=== PATIENT | female | born 1980 | race Two or more races ===

== ENCOUNTER 2017-03-26 07:49 | Emergency (ER) | payer MEDICAID ==
[~2017-03-26] VITALS: Ht 170.2 cm; Wt 84.8 kg
[2017-03-26 07:57] VITALS: BP 140/89
== END 2017-03-26 08:21 | disposition home or self-care (01) ==
LOC: ED 07:49
DX: S02.5XXA Fracture of tooth (traumatic), initial encounter for closed fracture (principal); Z88.0 Allergy status to penicillin; X58.XXXA Exposure to other specified factors, initial encounter; Y93.89 Activity, other specified; Y99.8 Other external cause status; Y92.89 Other specified places as the place of occurrence of the external cause

== ENCOUNTER 2017-05-22 17:09 | Emergency (ER) | payer OTHER ==
[2017-05-22 17:14] VITALS: BP 132/91
== END 2017-05-22 18:05 | disposition home or self-care (01) ==
LOC: ED 17:09
DX: K04.7 Periapical abscess without sinus (principal); R03.0 Elevated blood-pressure reading, without diagnosis of hypertension; Z88.0 Allergy status to penicillin; Z98.51 Tubal ligation status

== ENCOUNTER 2017-05-27 08:22 | Emergency (ER) | payer OTHER ==
[2017-05-27 10:29] VITALS: BP 125/74
== END 2017-05-27 10:29 | disposition home or self-care (01) ==
LOC: ED 08:22
DX: J40 Bronchitis, not specified as acute or chronic (principal); Z88.0 Allergy status to penicillin

== ENCOUNTER 2017-06-16 13:20 | Emergency (ER) | payer SELFPAY ==
[~2017-06-16] VITALS: Ht 12.7 cm; Wt 84.8 kg
[2017-06-16 13:37] VITALS: Ht 12.7 cm; Wt 84.8 kg
[2017-06-16 14:51] VITALS: BP 130/88
== END 2017-06-16 14:51 | disposition home or self-care (01) ==
LOC: ED 13:20
DX: K04.7 Periapical abscess without sinus (principal); Z98.51 Tubal ligation status; Z88.0 Allergy status to penicillin

== ENCOUNTER 2017-06-24 14:26 | Emergency (ER) | payer OTHER ==
[~2017-06-24] VITALS: Ht 167.6 cm; Wt 85.3 kg
[2017-06-24 14:45] VITALS: BP 135/102; Ht 167.6 cm; Wt 85.3 kg
== END 2017-06-24 16:30 | disposition home or self-care (01) ==
LOC: ED 14:26
DX: L53.9 Erythematous condition, unspecified (principal); Z88.0 Allergy status to penicillin

== ENCOUNTER 2017-07-27 15:32 | Emergency (ER) | payer OTHER ==
[~2017-07-27] VITALS: Ht 167.6 cm; Wt 86.6 kg
[2017-07-27 15:49] VITALS: BP 138/90; Ht 167.6 cm; Wt 86.6 kg
== END 2017-07-27 16:45 | disposition home or self-care (01) ==
LOC: ED 15:32
DX: K02.9 Dental caries, unspecified (principal); Z88.0 Allergy status to penicillin

== ENCOUNTER 2017-10-15 13:23 | Emergency (ER) | payer OTHER ==
[~2017-10-15] VITALS: Ht 167.6 cm; Wt 87.1 kg
[2017-10-15 13:44] VITALS: Ht 167.6 cm; Wt 87.1 kg
[2017-10-15 14:14] LABS: BASOPHIL % 0.4 % (0-2); PLATELET COUNT 259 x10^3mcL (130-400); RED CELL DISTRIBUTION WIDTH 13.6 % (11.5-14.5)
[2017-10-15 14:25] LABS: ALBUMIN 3.5 g/dL (3.4-5.0); ALKALINE PHOSPHATASE 93 U/L (46-116); ALT/SGPT 25 U/L (14-59); AST/SGOT 15 U/L (15-37); BILIRUBIN TOTAL 0.6 mg/dL (0.20-1.00); CALCIUM 8.7 mg/dL (8.5-10.1); CARBON DIOXIDE 28.1 mmol/L (21-32); CHLORIDE SERUM 106 mmol/L (98-107); CREATININE SERUM 1.1 mg/dL (0.6-1.0); GFR1 > 60 mL/min; GLUCOSE SERUM 95 mg/dL (74-106); SODIUM SERUM 140 mmol/L (136-145); TOTAL PROTEIN, SERUM 7.3 g/dL (6.4-8.2)
[2017-10-15 15:15] VITALS: BP 135/97
[2017-10-15 15:17] LABS: AMPHETAMINE QUAL UR NONE DETECTED (NEG <=1000)
== END 2017-10-15 15:15 | disposition home or self-care (01) ==
LOC: ED 13:23
PROVIDERS: Emergency Medicine
DX: R07.9 Chest pain, unspecified (principal); R03.0 Elevated blood-pressure reading, without diagnosis of hypertension; Z88.0 Allergy status to penicillin
CPT/HCPCS: 36415; 83880; J1885; Q0092

== ENCOUNTER 2017-12-03 18:23 | Emergency (ER) | payer OTHER ==
[~2017-12-03] VITALS: Ht 167.6 cm; Wt 83.0 kg
[2017-12-03 18:48] VITALS: Ht 167.6 cm; Wt 83.0 kg
[2017-12-03 19:52] VITALS: BP 132/71
== END 2017-12-03 20:38 | disposition home or self-care (01) ==
LOC: ED 18:23
DX: N39.0 Urinary tract infection, site not specified (principal); Z88.0 Allergy status to penicillin; F32.9 Major depressive disorder, single episode, unspecified
CPT/HCPCS: J1885; Q0092

== ENCOUNTER 2018-01-08 09:28 | Emergency (ER) | payer OTHER ==
[~2018-01-08] VITALS: Ht 162.6 cm; Wt 83.5 kg
[2018-01-08 09:36] VITALS: BP 144/84; Ht 162.6 cm; Wt 83.5 kg
== END 2018-01-08 11:32 | disposition home or self-care (01) ==
LOC: ED 09:28
DX: S06.0X0A Concussion without loss of consciousness, initial encounter (principal); S01.01XA Laceration without foreign body of scalp, initial encounter; Z88.0 Allergy status to penicillin; Y00.XXXA Assault by blunt object, initial encounter; Y93.89 Activity, other specified; Y92.89 Other specified places as the place of occurrence of the external cause; Y99.8 Other external cause status
CPT/HCPCS: J2001

== ENCOUNTER 2018-01-11 11:41 | Emergency (ER) | payer OTHER ==
[~2018-01-11] VITALS: Ht 170.2 cm; Wt 84.8 kg
[2018-01-11 11:53] VITALS: BP 97/65; Ht 170.2 cm; Wt 84.8 kg
== END 2018-01-11 14:45 | disposition home or self-care (01) ==
LOC: ED 11:41
DX: S01.01XD Laceration without foreign body of scalp, subsequent encounter (principal); W22.8XXD Striking against or struck by other objects, subsequent encounter

== ENCOUNTER 2018-01-17 13:56 | Emergency (ER) | payer OTHER ==
[~2018-01-17] VITALS: Ht 157.5 cm; Wt 85.7 kg
[2018-01-17 14:32] VITALS: BP 127/89
== END 2018-01-17 14:32 | disposition home or self-care (01) ==
LOC: ED 13:56
DX: S01.01XD Laceration without foreign body of scalp, subsequent encounter (principal); X58.XXXD Exposure to other specified factors, subsequent encounter

== ENCOUNTER 2018-02-14 09:51 | Emergency (ER) | payer OTHER ==
[~2018-02-14] VITALS: Ht 167.6 cm; Wt 83.5 kg
[2018-02-14 10:01] VITALS: BP 136/85; Ht 167.6 cm; Wt 83.5 kg
== END 2018-02-14 11:53 | disposition home or self-care (01) ==
LOC: ED 09:51
DX: J02.9 Acute pharyngitis, unspecified (principal); Z88.0 Allergy status to penicillin
CPT/HCPCS: J1100; J1885

== ENCOUNTER 2018-02-18 18:16 | Emergency (ER) | payer OTHER ==
[~2018-02-18] VITALS: Ht 167.6 cm; Wt 82.6 kg
[2018-02-18 18:55] VITALS: BP 124/81; Ht 167.6 cm; Wt 82.6 kg
== END 2018-02-18 21:47 | disposition left against medical advice (07) ==
LOC: ED 18:16
DX: Z53.21 Procedure and treatment not carried out due to patient leaving prior to being seen by health care provider (principal)

== ENCOUNTER 2018-04-08 12:01 | Emergency (ER) | payer OTHER ==
[~2018-04-08] VITALS: Ht 167.6 cm; Wt 86.2 kg
[2018-04-08 12:05] VITALS: Ht 167.6 cm; Wt 86.2 kg
[2018-04-08 13:58] VITALS: BP 112/78
== END 2018-04-08 13:50 | disposition home or self-care (01) ==
LOC: ED 12:01
DX: J40 Bronchitis, not specified as acute or chronic (principal); Z88.0 Allergy status to penicillin; F32.9 Major depressive disorder, single episode, unspecified
CPT/HCPCS: Q0092

== ENCOUNTER 2018-06-01 18:02 | Emergency (ER) | payer OTHER ==
[~2018-06-01] VITALS: Ht 167.6 cm; Wt 89.4 kg
[2018-06-01 18:18] VITALS: Ht 167.6 cm; Wt 89.4 kg
[2018-06-01 20:36] VITALS: BP 136/97
== END 2018-06-01 20:36 | disposition home or self-care (01) ==
LOC: ED 18:02
DX: M53.3 Sacrococcygeal disorders, not elsewhere classified (principal); F32.9 Major depressive disorder, single episode, unspecified; Z88.0 Allergy status to penicillin
CPT/HCPCS: J1885

== ENCOUNTER 2018-07-31 10:31 | Emergency (ER) | payer OTHER ==
[~2018-07-31] VITALS: Ht 167.6 cm; Wt 88.5 kg
[2018-07-31 10:49] VITALS: BP 127/100; Ht 167.6 cm; Wt 88.5 kg
== END 2018-07-31 13:00 | disposition home or self-care (01) ==
LOC: ED 10:31
DX: S51.812A Laceration without foreign body of left forearm, initial encounter (principal); S81.852A Open bite, left lower leg, initial encounter; F32.9 Major depressive disorder, single episode, unspecified; Z88.0 Allergy status to penicillin; Y04.1XXA Assault by human bite, initial encounter; Y93.89 Activity, other specified; Y92.89 Other specified places as the place of occurrence of the external cause; Y99.8 Other external cause status
CPT/HCPCS: 90715

== ENCOUNTER 2018-09-06 10:25 | Emergency (ER) | payer OTHER ==
[~2018-09-06] VITALS: Ht 167.6 cm; Wt 86.2 kg
[2018-09-06 10:37] VITALS: BP 122/86; Ht 167.6 cm; Wt 86.2 kg
== END 2018-09-06 12:00 | disposition home or self-care (01) ==
LOC: ED 10:25
DX: J02.9 Acute pharyngitis, unspecified (principal); F32.9 Major depressive disorder, single episode, unspecified; Z88.0 Allergy status to penicillin

== ENCOUNTER 2018-10-15 16:17 | Emergency (ER) | payer OTHER ==
[~2018-10-15] VITALS: Ht 167.6 cm; Wt 85.3 kg
[2018-10-15 16:26] VITALS: Ht 167.6 cm; Wt 85.3 kg
[2018-10-15 19:58] VITALS: BP 144/87
== END 2018-10-15 19:58 | disposition home or self-care (01) ==
LOC: ED 16:17
DX: S00.11XA Contusion of right eyelid and periocular area, initial encounter (principal); S01.512A Laceration without foreign body of oral cavity, initial encounter; F41.9 Anxiety disorder, unspecified; Z88.0 Allergy status to penicillin; Y04.8XXA Assault by other bodily force, initial encounter; Y93.89 Activity, other specified; Y92.89 Other specified places as the place of occurrence of the external cause; Y99.8 Other external cause status

== ENCOUNTER 2018-12-28 20:27 | Emergency (ER) | payer OTHER ==
[~2018-12-28] VITALS: Ht 157.5 cm; Wt 87.5 kg
[2018-12-28 20:29] VITALS: BP 131/80; Ht 157.5 cm; Wt 87.5 kg
== END 2018-12-28 21:44 | disposition home or self-care (01) ==
LOC: ED 20:27
DX: S92.424A Nondisplaced fracture of distal phalanx of right great toe, initial encounter for closed fracture (principal); F32.9 Major depressive disorder, single episode, unspecified; Z88.0 Allergy status to penicillin; W50.1XXA Accidental kick by another person, initial encounter; Y93.66 Activity, soccer; Y92.322 Soccer field as the place of occurrence of the external cause; Y99.8 Other external cause status

== ENCOUNTER 2019-03-05 14:09 | Emergency (ER) | payer OTHER ==
[~2019-03-05] VITALS: Ht 167.6 cm; Wt 86.6 kg
[2019-03-05 14:16] VITALS: Ht 167.6 cm; Wt 86.6 kg
[2019-03-05 15:30] VITALS: BP 131/89
== END 2019-03-05 15:30 | disposition home or self-care (01) ==
LOC: ED 14:09
DX: J06.9 Acute upper respiratory infection, unspecified (principal); N39.0 Urinary tract infection, site not specified; Z98.51 Tubal ligation status; Z88.0 Allergy status to penicillin

== ENCOUNTER 2019-03-18 09:21 | Emergency (ER) | payer OTHER ==
[~2019-03-18] VITALS: Ht 167.6 cm; Wt 84.8 kg
[2019-03-18 09:26] VITALS: Ht 167.6 cm; Wt 84.8 kg
[2019-03-18 10:14] LABS: CALCIUM 8.3 mg/dL (8.5-10.1); CARBON DIOXIDE 24.5 mmol/L (21-32); CHLORIDE SERUM 108 mmol/L (98-107); CREATININE SERUM 0.9 mg/dL (0.6-1.0); GFR1 > 60 mL/min; GLUCOSE SERUM 93 mg/dL (74-106); SODIUM SERUM 142 mmol/L (136-145)
[2019-03-18 10:19] LABS: ALBUMIN 3.4 g/dL (3.4-5.0); ALKALINE PHOSPHATASE 73 U/L (46-116); ALT/SGPT 79 U/L (14-59); AST/SGOT 97 U/L (15-37); BILIRUBIN TOTAL 0.33 mg/dL (0.20-1.00)
[2019-03-18 10:30] LABS: BASOPHIL % 0.1 % (0-2); PLATELET COUNT 287 x10^3mcL (130-400); RED CELL DISTRIBUTION WIDTH 13.2 % (11.5-14.5)
[2019-03-18 14:57] VITALS: BP 132/76
== END 2019-03-18 15:40 | disposition home or self-care (01) ==
LOC: ED 09:21
PROVIDERS: Emergency Medicine
DX: S01.01XA Laceration without foreign body of scalp, initial encounter (principal); S81.811A Laceration without foreign body, right lower leg, initial encounter; S29.9XXA Unspecified injury of thorax, initial encounter; M54.6 Pain in thoracic spine; F32.9 Major depressive disorder, single episode, unspecified; Z88.0 Allergy status to penicillin; V48.6XXA Car passenger injured in noncollision transport accident in traffic accident, initial encounter; Y93.89 Activity, other specified; Y92.488 Other paved roadways as the place of occurrence of the external cause; Y99.8 Other external cause status
CPT/HCPCS: 72072; J1885; J2001; J2270; J2405

== ENCOUNTER 2019-03-21 20:18 | Emergency (ER) | payer OTHER ==
[~2019-03-21] VITALS: Ht 170.2 cm; Wt 89.8 kg
[2019-03-21 20:42] VITALS: BP 121/89; Ht 170.2 cm; Wt 89.8 kg
== END 2019-03-21 22:36 | disposition home or self-care (01) ==
LOC: ED 20:18
DX: S80.11XA Contusion of right lower leg, initial encounter (principal); F32.9 Major depressive disorder, single episode, unspecified; Z88.0 Allergy status to penicillin; V49.9XXA Car occupant (driver) (passenger) injured in unspecified traffic accident, initial encounter; Y93.89 Activity, other specified; Y92.89 Other specified places as the place of occurrence of the external cause; Y99.8 Other external cause status

== ENCOUNTER 2019-03-30 10:07 | Emergency (ER) | payer OTHER ==
[~2019-03-30] VITALS: Ht 170.2 cm; Wt 86.6 kg
[2019-03-30 10:22] VITALS: BP 140/99; Ht 170.2 cm; Wt 86.6 kg
== END 2019-03-30 11:57 | disposition home or self-care (01) ==
LOC: ED 10:07
DX: R07.89 Other chest pain (principal); R06.02 Shortness of breath; Z88.0 Allergy status to penicillin; Z98.51 Tubal ligation status

== ENCOUNTER 2020-01-01 11:13 | Emergency (ER) | payer OTHER ==
[~2020-01-01] VITALS: Ht 167.6 cm; Wt 88.0 kg
[2020-01-01 11:42] VITALS: Ht 167.6 cm; Wt 88.0 kg
[2020-01-01 13:25] VITALS: BP 163/100
== END 2020-01-01 13:25 | disposition home or self-care (01) ==
LOC: ED 11:13
DX: J45.901 Unspecified asthma with (acute) exacerbation (principal); F12.20 Cannabis dependence, uncomplicated; E66.9 Obesity, unspecified; Z68.31 Body mass index [BMI] 31.0-31.9, adult; Z98.51 Tubal ligation status; Z88.0 Allergy status to penicillin

== ENCOUNTER 2020-04-03 15:28 | Emergency (ER) | payer OTHER ==
[~2020-04-03] VITALS: Ht 157.5 cm; Wt 85.3 kg
[2020-04-03 15:35] VITALS: Ht 157.5 cm; Wt 85.3 kg
[2020-04-03 17:15] VITALS: BP 140/91
== END 2020-04-03 17:00 | disposition home or self-care (01) ==
LOC: ED 15:28
DX: J45.901 Unspecified asthma with (acute) exacerbation (principal); Z98.51 Tubal ligation status; Z88.0 Allergy status to penicillin

== ENCOUNTER 2020-04-26 19:35 | Emergency (ER) | payer OTHER ==
[~2020-04-26] VITALS: Ht 167.6 cm; Wt 87.1 kg
[2020-04-26 19:50] VITALS: Ht 167.6 cm; Wt 87.1 kg
[2020-04-26 21:48] VITALS: BP 132/89
== END 2020-04-26 21:48 | disposition home or self-care (01) ==
LOC: ED 19:35
DX: J34.0 Abscess, furuncle and carbuncle of nose (principal); J45.909 Unspecified asthma, uncomplicated; Z88.0 Allergy status to penicillin